=== PATIENT | female | born 1970 | race Caucasian/White ===

== ENCOUNTER 2019-01-21 11:30 | Emergency (ER) | payer OTHER ==
[2019-01-21 11:45] VITALS: BP 148/52; PULSE 85; TEMP 98.2; BMI 26.6
--- NOTE | 2019-01-21 12:17 | PDOC ---
History of Present Illness - General Chief Complaint: Pain, Acute Stated Complaint: LEG PAIN Time Seen by Provider: 01/21/19 11:45 History Source: Patient Exam Limitations: No Limitations - History of Present Illness Initial Comments: 01/21/19 12:24 Chief complaint: Toe pain Patient 48-year-old female, IDDM for 20 years who is had 2 weeks of redness and pain to the left great toe. Patient called the estate and trust tax principal and made an appointment but they told her to come to the ER. Patient has no fever. GENERAL/CONSTITUTIONAL: No fever, weakness. dizziness HEAD, EYES, EARS, NOSE AND THROAT: No change in vision. No ear pain or discharge. No sore throat. CARDIOVASCULAR: No chest pain RESPIRATORY: No shortness of breath or cough GASTROINTESTINAL: No pain, nausea, vomiting, diarrhea or constipation GENITOURINARY: No dysuria MUSCULOSKELETAL: No neck or back pain SKIN: No rash, + left great toe NEUROLOGIC: No headache, vertigo, loss of consciousness, or loss of sensation. GENERAL: The patient is awake, alert, and fully oriented, in no acute distress. HEAD: Normal with no signs of trauma. EYES: Pupils equal, round and reactive to light, sclera anicteric, conjunctiva clear. ENT: pharynx: no erythema, no exudate, uvula midline NECK: supple CHEST: clear, nontender, rr ABD: soft, nontender BACK: no tenderness or signs of injury EXTREMITIES: Right great toe with thickened nail, slight erythema and swelling, no streaking, no discharge, no other swelling, neurovascular intact. Rest of extremities, normal range of motion, no edema. NEUROLOGICAL: Normal speech, normal gait. SKIN: Warm, Dry Past History - Past Medical History Allergies/Adverse Reactions: Allergies Allergy/AdvReac Type Severity Reaction Status Date / Time No Known Allergies Allergy Verified 01/21/19 11:36 Home Medications: Ambulatory Orders Cephalexin [Keflex] 500 mg PO QID #28 capsule 01/21/19 Sulfamethoxazole/Trimethoprim [Bactrim Ds Tablet] 1 each PO BID #14 tablet 01/21 COPD: No - Immunization History Immunization Up to Date: Yes - Psycho Social/Smoking Cessation Hx Smoking History: Never smoked Hx Alcohol Use: No Drug/Substance Use Hx: No *Physical Exam - Vital Signs Last Vital Signs Temp Pulse Resp BP Pulse Ox 98.2 F 85 17 148/52 L 99 10/24/19 11:35 01/21/19 11:35 01/21/19 11:35 01/21/19 11:35 01/21/19 11:35 Medical Decision Making - Medical Decision Making 01/21/19 12:25 48-year-old female, IDDM, coronary artery disease with very limited left great toe erythema, not streaking, no signs of paronychia or discharge or abscess. No fever. Appears to be very superficial at this point. Patient is never had before. We will give Keflex and Bactrim with close follow-up with podiatry. Patient has an appoint with a estate and trust tax principal and was given another option for follow -up. Discussed issues, findings, results, applicable medications and treatments and follow-up. All these were understood and all questions were answered Discharge - Discharge Information Problems reviewed: Yes Clinical Impression/Diagnosis: Localized bacterial infection of skin Condition: Stable Disposition: HOME - Admission No - Additional Discharge Information Prescriptions: Cephalexin [Keflex] 500 mg PO QID #28 capsule Sulfamethoxazole/Trimethoprim [Bactrim Ds Tablet] 1 each PO BID #14 tablet Prescription Drug Monitoring Program (I-STOP) results: I-STOP not reviewed - Follow up/Referral - Patient Discharge Instructions Additional Instructions: Take the Keflex and Bactrim as prescribed Follow-up with the estate and trust tax principal in 1 to 2 days Have reevaluated if redness, pus, fever or getting worse - Post Discharge Activity
== END 2019-01-21 12:24 | disposition home or self-care (01) ==
LOC: JERFT 11:30
DX: L08.89 Other specified local infections of the skin and subcutaneous tissue (principal); B96.89 Other specified bacterial agents as the cause of diseases classified elsewhere; I25.10 Atherosclerotic heart disease of native coronary artery without angina pectoris; E11.9 Type 2 diabetes mellitus without complications; Z79.4 Long term (current) use of insulin
CPT/HCPCS: 99281-25

== ENCOUNTER 2020-01-03 11:39 | Emergency (ER) | payer OTHER ==
[2020-01-03 11:56] VITALS: BMI 25.8
--- NOTE | 2020-01-03 12:46 | PDOC ---
History of Present Illness - General Chief Complaint: Chest Pain Stated Complaint: CHEST PAIN Time Seen by Provider: 01/03/20 12:45 History Source: Patient Exam Limitations: No Limitations - History of Present Illness Initial Comments: 01/03/20 12:46 49F with PMH of CAD x4 stents, DM presents to ED with CP that started this AM, that's diffuse accross the chest, radiating around the back. The pain feels like pressure and pleuritic, however, does not feel similar to her [place]'s in the past. Reported feeling SOB with walking, which isn't normal, improved with rest. Also stated that she feels generally fatigued. She also reports recent loss of taste, and is concerned for COVID, but had no known sick contacts. She denies fevers, syncope, cough, nvdc, abdominal pain. No hx/o DVT/PE. PMH: as in HPI SH: see below Meds: In chart Allergies: NKDA Tob/Etoh/Rec drugs: neg x3; previous smoker PCP: Dr. Lilia CLARK GENERAL/CONSTITUTIONAL: No fever or chills. No weakness. HEENT: No change in vision. No ear pain or discharge. No sore throat. CARDIOVASCULAR: +chest pain, +shortness of breath RESPIRATORY: No cough, wheezing, or hemoptysis. GASTROINTESTINAL: No nausea, vomiting, diarrhea or constipation. GENITOURINARY: No dysuria, frequency, or change in urination. MUSCULOSKELETAL: No joint or muscle swelling or pain. No neck or back pain. SKIN: No rash NEUROLOGIC: No headache, vertigo, loss of consciousness, or change in strength/sensation. ENDOCRINE: No increased thirst. No abnormal weight change HEMATOLOGIC/LYMPHATIC: No anemia, easy bleeding, or history of blood clots. ALLERGIC/IMMUNOLOGIC: No hives or skin allergy. PE GENERAL: AOx3; no acute distress HEAD: No signs of trauma, NC/AT EYES: PERRLA, EOMI, sclera anicteric, conjunctiva clear ENT: Auricles normal inspection, hearing grossly normal, nares patent, moist mucosa, oropharynx clear without exudates. NECK: Normal ROM, supple, no LAD, JVD, or masses HEART: RRR, normal S1/S2, no murmurs, rubs, or gallops. Peripheral pulses 2+ and equal bilaterally. LUNGS: No distress, speaks full sentences, CTA bilaterally ABDOMEN: Soft, nontender. No guarding, no rebound. No masses EXTREMITIES: Normal inspection, Normal range of motion, no edema. No calf or distal thigh tenderness. NEUROLOGICAL: CNII-XII grossly intact. Normal speech, no focal sensorimotor deficits SKIN: Warm, Dry, normal turgor, no rashes or lesions noted Assessment and Plan 1. r/o ACS 2. PE 3. COVID Jeevan Washburn, PGY1 Emergency Medicine Past History - Medical History Allergies/Adverse Reactions: Allergies Allergy/AdvReac Type Severity Reaction Status Date / Time No Known Allergies Allergy Verified 01/03/20 11:49 Home Medications: Ambulatory Orders Aspirin [ASA -] 81 mg PO DAILY 06/13/19 Atorvastatin Ca [Lipitor] 80 mg PO DAILY 06/13/19 Lisinopril [Zestril] 2.5 mg PO DAILY 06/13/19 Metformin HCl [Glucophage] 500 mg PO TID 06/13/19 Metoprolol Tartrate 25 mg PO DAILY 06/13/19 Prasugrel HCl [Effient] 10 mg PO DAILY 06/13/19 Amoxicillin/Potassium Clav [Augmentin 875-125 Tablet] 1 each PO BID #5 tablet 06/19/19 Valacyclovir HCl [Valtrex] 1,000 mg PO BID #8 tablet 06/19/19 Cardiac Disorders: Yes (CAD s/p 4 stents, HLD) COPD: No Diabetes: Yes HTN: Yes - Surgical History Cholecystectomy: Yes - Reproductive History Is Patient Now?: No - Immunization History Td Vaccination: Yes TDAP Vaccination: Yes Immunization Up to Date: Yes - Psycho-Social/Smoking History Smoking History: Former smoker Have you smoked in the past 12 months: No If you are a former smoker, when did you quit?: 2014 Information on smoking cessation initiated: No - Substance Abuse Hx (Audit-C & DAST Scrn) How often the patient has a drink containing alcohol: Never Score: In Men: 4 or > Positive; In Women: 3 or > Positive: 0 Screen Result (Pos requires Nsg. Audit-10AR): Negative In the last yr the pt used illegal drug/Rx for NonMed reason: No Score: Yes response is considered Positive: 0 Screen Result (Positive result requires Nsg. DAST-10): Negative *Physical Exam - Vital Signs Last Vital Signs Temp Pulse Resp BP Pulse Ox 98.5 F 95 H 18 130/81 100 01/03/20 11:49 01/03/20 11:49 01/03/20 11:49 01/03/20 11:49 01/03/20 11:49 ED Treatment Course - LABORATORY CBC & Chemistry Diagram: 01/03/20 13:53 01/03/20 13:50 Medical Decision Making - Medical Decision Making 01/03/20 13:17 49F p/w pleuritic CP and SOB on ambulation. Exam was unimpressive. -> Will r/o ACS (due to CAD, although feels dissimilar to [place]) and eval for PE, low risk Well's and PERC negative, however, clinically characteristic with pleuritic CP, fatigue, and SOB -> chest CTA 01/03/20 14:19 EKG nsr, similar to EKG done on 06/15/19, with decreased amplitude of T waves in the precordial waves. 01/03/20 15:22 Trop 5.07, will repeat trop. CK-MB elevated as well. CMP and CBC otherwise wnl. 01/03/20 18:07 CTA chest failed to demonstrate evidence of PE. Spoke with on-call flight test supervisor, Dr. Mckinney, and after discussing the case, he recommended starting her on heparin and ticagrelor and transfer to a facility with dental laboratory supervisor. After reassessing the patient, she currently does not have chest pain. She was updated on the plan. 01/03/20 19:[address] De Santiago at [facility] Jeevan Washburn, PGY1 Emergency Medicine Discharge - Discharge Information Problems reviewed: Yes Clinical Impression/Diagnosis: Chest pain due to myocardial ischemia Qualifiers: Ischemic chest pain type: unspecified angina pectoris type Qualified Code(s): I25.9 - Chronic ischemic heart disease, unspecified Condition: Stable Disposition: TRANSFER ACUTE CARE/OTHER HOSP - Follow up/Referral - Patient Discharge Instructions - Post Discharge Activity
[2020-01-03] MEDS ORDERED: FAMOTIDINE 20 MG/50 ML IVPB 20 MG/50 ML MG IVPB ONE (13:03)
[2020-01-03] MEDS ORDERED: SODIUM CHLORIDE 0.9% 1000 ML INFUS.BAG IV ONE (13:03)
[2020-01-03] MEDS ORDERED: ONDANSETRON 4 MG/2 ML VIAL IVPUSH ONE (13:03)
[2020-01-03] MEDS ORDERED: ACETAMINOPHEN 1000 MG/100 ML VIAL (NON FORMULARY) IVPB ONE (13:03)
[2020-01-03 14:02] LABS: EOS % 1.8 % (0-4.5); HEMATOCRIT 37.6 % (32.4-45.2); LYMPH % 22.3 % (8-40); MCH 30.1 pg (25.7-33.7); MCHC 34.7 g/dl (32.0-36.0); MEAN CELL VOLUME 86.9 fl (80-96); MEAN PLT VOLUME 8.7 fl (7.5-11.1); MONO % 6.5 % (3.8-10.2); NEUT % 68.4 % (42.8-82.8); PLATELET COUNT 381 K/MM3 (134-434); RBC 4.33 M/mm3 (3.60-5.2); RDW 12.9 % (11.6-15.6); WHITE BLOOD COUNT 10.8 K/mm3 (4.0-10.0)
[2020-01-03 14:08] LABS: INR 1.06 (0.83-1.09); PROTHROMBIN TIME (PATIENT) 12.5 SEC (9.7-13.0)
[2020-01-03 14:11] LABS: ACTIVATED PTT 33.6 SECONDS (25.2-36.5)
[2020-01-03 14:26] LABS: ALBUMIN 3.5 g/dl (3.4-5.0); BILIRUBIN,TOTAL 0.3 mg/dL (0.2-1); BLOOD UREA NITROGEN 9.2 mg/dL (7-18); CALCIUM 9.6 mg/dL (8.5-10.1); CREATININE 0.6 mg/dL (0.55-1.3); POTASSIUM 4.2 mmol/L (3.5-5.1); TOT PROT 7.6 g/dl (6.4-8.2)
--- NOTE | 2020-01-03 14:28 | PDOC ---
Documentation entered by Marcos Vargas SCRIBE, acting as scribe for Jose Stevenson MD. Jose Stevenson MD: This documentation has been prepared by the Sam castañeda Alexis, SCRIBE, under my direction and personally reviewed by me in its entirety. I confirm that the documentation accurately reflects all work, treatment, procedures, and medical decision making performed by me. Attending Attestation - Resident Resident Name: Jeevan Washburn - ED Attending Attestation I have performed the following: I have examined & evaluated the patient, The case was reviewed & discussed with the resident, I agree w/resident's findings & plan, Exceptions are as noted - HPI HPI: 01/03/20 13:31 The patient is a 49 year old female with a significant past medical history of DM, ACS s/p 4 stents, vertigo who presents to the emergency department for evaluation of diffuse chest pain that began this morning. The patient reports her pain feels like a pressure and radiates to her back. She endorses dyspnea on exertion and fatigue. The patient also notes loss of taste for the past two days. Denies sick contacts. The patient denies chest/abdominal/back pain, cough, and shortness of breath. Denies fever, chills, nausea, vomiting, and/or any GI symptoms. Denies any symptoms. Denies any other symptoms. Allergies: NKA Social Hx: The patient reports she is a former smoker. Denies smoking and illicit drug use. Surgical Hx: 4 stents, bilateral tubal ligation, cholecystectomy PCP: Dr. Rodrigues - Physicial Exam PE: 01/03/20 12:53 Vitals: Triage vital signs reviewed General Appearance: No acute distress, well nourished, well developed Head: Atraumatic Cardiac: Regular rate and rhythm, no murmurs, no rubs, no gallops Lungs: Clear to auscultation bilateral, good air movement bilaterally Abdomen: +left upper quadrant tenderness ,Soft, nondistended, normal bowel sounds Extremities: Full range of motion to all extremities, no cyanosis, clubbing, or edema Skin: Warm and dry, no rashes or lesions, no rash, no petechiae - Medical Decision Making 01/03/20 15:30 49 years old with chest discomfort worse with deep inspiration Differential diagnosis includes ACS versus PE CTA ordered. Nonischemic EKG but troponin detectable at 5 Full dose aspirin given Given pleuritic pain worse with inspiration we will CTA. Depending on results of CTA will dose heparin for either PE dosage or ACS dosage if PE study negative Dr. Constantino to follow-up results reassess and dispel patient Heart Score/ECG Review - History History: Moderately suspicious - Electrocardiogram EKG: Normal - Age Age: 45-65 - Risk Factors Risk Factors Heart Score: Yes Hx Diabetes, Yes Positive family hx of cardiac disease Based on the list above the patient has:: >/=3 risk factors or Hx atherosclerotic disease - Troponin Troponin: >/=3x normal limit - Score Heart Score - Total: 6 - ECG Impressions Comment:: 01/03/20 14:29 EKG performed at 1147 demonstrates normal sinus rhythm no ST elevations no T wave inversions incomplete right bundle branch block Interpreted by me. Discharge - Discharge Information Problems reviewed: Yes Clinical Impression/Diagnosis: Chest pain due to myocardial ischemia Qualifiers: Ischemic chest pain type: unspecified angina pectoris type Qualified Code(s): I25.9 - Chronic ischemic heart disease, unspecified Condition: Stable Disposition: TRANSFER ACUTE CARE/OTHER HOSP - Follow up/Referral - Patient Discharge Instructions - Post Discharge Activity
[2020-01-03] MEDS ORDERED: ASPIRIN 81 MG CHEWABLE TABLETS PO ONE (15:11)
[2020-01-03] MEDS ORDERED: ASPIRIN 81 MG CHEWABLE TABLETS ONE (15:16)
[2020-01-03] MEDS ORDERED: HEPARIN NA (PORCINE) 5,000 UNITS/ML 1ML VIAL IVPUSH PRN ×2 (17:40)
[2020-01-03] MEDS ORDERED: HEPARIN NA (PORCINE) 5,000 UNITS/ML 1ML VIAL IVPUSH ONE (17:45)
[2020-01-03] MEDS ORDERED: HEPARIN - 25,000 UNIT in SODIUM CHLORIDE 495 ML IV SCH (17:45)
[2020-01-03] MEDS ORDERED: HEPARIN NA (PORCINE) 5,000 UNITS/ML 1ML VIAL ONE (18:25)
[2020-01-03] MEDS ORDERED: HEPARIN INFUSION - 25,000 UNITS/500 ML INFUS.BAG IVPB ONE (18:25)
[2020-01-03 19:19] VITALS: BP 135/73; PULSE 88; TEMP 98.2
--- NOTE | 2020-01-04 09:55 | EKG ---
Test Reason : Blood Pressure : / mmHG Vent. Rate : 090 BPM Atrial Rate : 090 BPM P-R Int : 128 ms QRS Dur : 094 ms QT Int : 366 ms P-R-T Axes : 048 012 086 degrees QTc Int : 447 ms NORMAL SINUS RHYTHM NORMAL ECG WHEN COMPARED WITH ECG OF 15-JUN-2019 00:50, FUSION COMPLEXES ARE NO LONGER PRESENT PREMATURE VENTRICULAR COMPLEXES ARE NO LONGER PRESENT Confirmed by Jian Montiel MD ([id number]) on 01/04/2020 9:54:00 AM Referred By: Confirmed By:Jian Montiel MD
--- NOTE | 2020-01-04 09:55 | EKG ---
Test Reason : Blood Pressure : / mmHG Vent. Rate : 081 BPM Atrial Rate : 081 BPM P-R Int : 132 ms QRS Dur : 094 ms QT Int : 390 ms P-R-T Axes : 060 014 091 degrees QTc Int : 453 ms SINUS RHYTHM WITH OCCASIONAL PREMATURE VENTRICULAR COMPLEXES ABNORMAL QRS-T ANGLE, CONSIDER PRIMARY T WAVE ABNORMALITY ABNORMAL ECG WHEN COMPARED WITH ECG OF 15-JUN-2019 00:50, FUSION COMPLEXES ARE NO LONGER PRESENT Confirmed by Jian Montiel MD ([id number]) on 01/04/2020 9:53:58 AM Referred By: Confirmed By:Jian Montiel MD
== END 2020-01-03 19:14 | disposition short-term general hospital (02) ==
LOC: JER 11:39
PROC: 3E0333Z Introduction of Anti-inflammatory into Peripheral Vein, Percutaneous Approach (ICD-10-PCS; principal; 2020-01-03)
PROC: 3E033GC Introduction of Other Therapeutic Substance into Peripheral Vein, Percutaneous Approach (ICD-10-PCS; 2020-01-03)
DX: I25.9 Chronic ischemic heart disease, unspecified (principal)
CPT/HCPCS: 36415; 71045-TC-FY; 71275-TC; 80053; 82550; 82553; 82728; 83615; 83880; 84484; 84703; 85025; 85610; 85730; 86140; 86850; 86900; 86901; 93005; 93010; 99285-25; C9803; J1644; U0003

== ENCOUNTER 2022-12-02 20:13 | Emergency (ER) | payer OTHER ==
[2022-12-02 20:18] VITALS: BP 151/75; PULSE 77; RESP 20; TEMP 98.5; BMI 26.6
[2022-12-02] MEDS ORDERED: LIDOCAINE 5% TOPICAL PATCH TP ONE (21:28)
[2022-12-02] MEDS ORDERED: ACETAMINOPHEN 500 MG TABLET (FP) PO ONE (21:32)
[2022-12-02] MEDS ORDERED: ACETAMINOPHEN 325 MG TABLET (FP) ONE (21:53)
[2022-12-02] MEDS ORDERED: LIDOCAINE 5% TOPICAL PATCH ONE (21:53)
[2022-12-02] MEDS ORDERED: LIDOCAINE PATCH REMOVAL MC SCH (22:00)
[2022-12-02] MEDS ORDERED: ONDANSETRON 4 MG/2 ML VIAL IVPUSH ONE (22:17)
[2022-12-02] MEDS ORDERED: ONDANSETRON 4 MG/2 ML VIAL ONE (22:49)
[2022-12-02 22:54] LABS: BASO % 1.3 % (0-2.0); EOS % 2.6 % (0-4.5); HEMATOCRIT 37.6 % (32.4-45.2); HEMOGLOBIN 12.8 GM/dL (10.7-15.3); LYMPH % 54.4 % (8-40); MCH 28.8 pg (25.7-33.7); MEAN CELL VOLUME 84.7 fl (80-96); MEAN PLT VOLUME 8.5 fl (7.5-11.1); MONO % 8.8 % (3.8-10.2); NEUT % 32.9 % (42.8-82.8); PLATELET COUNT 224 10^3/uL (134-434); RBC 4.44 M/mm3 (3.60-5.2); RDW 12.3 % (11.6-15.6); WHITE BLOOD COUNT 4.7 K/mm3 (4.0-10.0)
[2022-12-02 23:01] LABS: INR 1.03 (0.83-1.09); PROTHROMBIN TIME (PATIENT) 11.9 SEC (9.7-13.0)
[2022-12-02 23:03] LABS: ACTIVATED PTT 35.4 SECONDS (25.2-36.5)
[2022-12-02 23:15] LABS: POTASSIUM 4.1 mmol/L (3.5-5.1)
[2022-12-02 23:17] LABS: ALBUMIN 3.7 g/dl (3.4-5.0); BLOOD UREA NITROGEN 12.8 mg/dL (7-18); CALCIUM 9.1 mg/dL (8.5-10.1)
[2022-12-02 23:20] LABS: CREATININE 0.6 mg/dL (0.55-1.3)
[2022-12-02 23:22] LABS: BILIRUBIN,TOTAL 0.2 mg/dL (0.2-1); TOT PROT 7.3 g/dl (6.4-8.2)
[2022-12-02] MEDS ORDERED: DEXAMETHASONE SOD PHOSPHATE 10 MG/1 ML VIAL IVPUSH ONE (23:28)
[2022-12-02] MEDS ORDERED: KETOROLAC TROMETHAMINE 15 MG/ML VIAL IVPUSH ONE (23:28)
[2022-12-02] MEDS ORDERED: KETOROLAC TROMETHAMINE 15 MG/ML VIAL ONE (23:46)
[2022-12-02] MEDS ORDERED: DEXAMETHASONE SOD PHOSPHATE 10 MG/1 ML VIAL ONE (23:46)
[2022-12-03 00:17] LABS: EPI CELLS 9 /uL (0-25.1); HYALINE CASTS 1 /uL (0-3.1); PH,URINE 5.5 (5.0-8.0); URINE APPEARANCE CLEAR; URINE BACTERIA >9,000 /uL (0-1359); URINE BILIRUBIN NEGATIVE (NEGATIVE); URINE COLOR YELLOW; URINE GLUCOSE (UA) NEGATIVE (NEGATIVE); URINE KETONE NEGATIVE (NEGATIVE); URINE LEUK ESTERASE TRACE (NEGATIVE); URINE NITRITE NEGATIVE (NEGATIVE); URINE PROTEIN 3+ (NEGATIVE); URINE RBC 3 /uL (0-23.9); URINE UROBILINOGEN 0.2 mg/dL (0.2-1.0); URINE WBC 51 /uL (0-25.8)
== END 2022-12-03 01:27 | disposition home or self-care (01) ==
LOC: JER 20:13
PROC: 3E0333Z Introduction of Anti-inflammatory into Peripheral Vein, Percutaneous Approach (ICD-10-PCS; principal; 2022-12-02)
PROC: 3E033GC Introduction of Other Therapeutic Substance into Peripheral Vein, Percutaneous Approach (ICD-10-PCS; 2022-12-02)
DX: M53.3 Sacrococcygeal disorders, not elsewhere classified (principal); M54.50 Low back pain, unspecified; R07.9 Chest pain, unspecified
CPT/HCPCS: 36415; 72131-TC; 80053; 81003; 84484; 84703; 85025; 85610; 85730; 93005; 93010; 99285-25; J1100